=== PATIENT | female | born 1960 | race Caucasian/White ===

== ENCOUNTER 2016-11-29 12:51 | Day surgery (SDC) | payer BC ==
[~2016-11-29] VITALS: Ht 165.1 cm; Wt 72.7 kg
[2016-11-29 13:25] VITALS: BP 129/65; PULSE 76; TEMP 98.3
[2016-11-29 15:00] VITALS: BP 123/64; PULSE 69; TEMP 98.3
[2016-11-29 15:15] VITALS: BP 121/64; PULSE 63
[2016-11-29 15:30] VITALS: BP 123/89; PULSE 61
[2016-11-29 15:45] VITALS: BP 118/82; PULSE 61
== END 2016-11-29 16:15 | disposition home or self-care (01) ==
LOC: SDCO 12:51
DX: Z12.11 Encounter for screening for malignant neoplasm of colon (principal); K57.30 Diverticulosis of large intestine without perforation or abscess without bleeding; K64.0 First degree hemorrhoids
CPT/HCPCS: OP; J2250; J2405; J3010; J7030

== ENCOUNTER → 2018-04-17 | Outpatient (CLI) | payer OTHER | LOC: MC.RAD 14:57 | DX: Z12.31 Encounter for screening mammogram for malignant neoplasm of breast (principal) ==

== ENCOUNTER → 2020-04-03 | Outpatient (CLI) | payer OTHER | LOC: MC.RAD 13:40 | DX: Z12.31 Encounter for screening mammogram for malignant neoplasm of breast (principal); N64.89 Other specified disorders of breast ==

== ENCOUNTER → 2020-04-09 | Outpatient (CLI) | payer OTHER | LOC: MC.RAD 10:57 | DX: N64.89 Other specified disorders of breast (principal) ==

== ENCOUNTER → 2022-09-06 | Outpatient (CLI) | payer OTHER | LOC: MC.RAD 06-27 15:00 | DX: Z12.31 Encounter for screening mammogram for malignant neoplasm of breast (principal) ==